=== PATIENT | female | born 1970 | race Caucasian/White ===

== ENCOUNTER → 2016-09-23 | Outpatient (CLI) | payer OTHER | LOC: RAD 02:12 | DX: Z12.31 Encounter for screening mammogram for malignant neoplasm of breast (principal) ==

== ENCOUNTER → 2016-09-29 | Outpatient (CLI) | payer OTHER | LOC: ULTRA 03:00 | DX: N63 Unspecified lump in breast (principal) ==

== ENCOUNTER → 2017-11-17 | Outpatient (CLI) | payer OTHER | LOC: RAD 01:29 | DX: Z12.31 Encounter for screening mammogram for malignant neoplasm of breast (principal) ==

== ENCOUNTER → 2018-12-20 | Outpatient (CLI) | payer OTHER | LOC: RAD 01:10 | DX: Z12.31 Encounter for screening mammogram for malignant neoplasm of breast (principal); N60.01 Solitary cyst of right breast ==

== ENCOUNTER → 2020-01-17 | Outpatient (CLI) | payer OTHER | LOC: BC 01-16 15:23 | PROVIDERS: ATTEND Obstetrics & Gynecology | DX: Z12.31 Encounter for screening mammogram for malignant neoplasm of breast (principal) ==

== ENCOUNTER → 2021-01-29 | Outpatient (CLI) | payer OTHER | LOC: BC 14:02 | PROVIDERS: ATTEND Obstetrics & Gynecology | DX: Z12.31 Encounter for screening mammogram for malignant neoplasm of breast (principal); N64.89 Other specified disorders of breast ==